=== PATIENT | male | born 1995 | race Two or more races ===

== ENCOUNTER 2017-09-19 15:53 | Emergency (ER) | payer OTHER ==
[~2017-09-19] VITALS: Ht 185.4 cm; Wt 113.4 kg
== END 2017-09-19 21:55 | disposition home or self-care (01) ==
LOC: ER 15:53
DX: S93.692A Other sprain of left foot, initial encounter (principal); S93.691A Other sprain of right foot, initial encounter; X50.3XXA Overexertion from repetitive movements, initial encounter; Y93.B9 Activity, other involving muscle strengthening exercises; Y92.89 Other specified places as the place of occurrence of the external cause; Y99.8 Other external cause status

== ENCOUNTER 2019-03-19 13:49 | Emergency (ER) | payer OTHER ==
[~2019-03-19] VITALS: Ht 188 cm; Wt 110.7 kg
== END 2019-03-19 18:39 | disposition home or self-care (01) ==
LOC: ER 13:49
DX: R42 Dizziness and giddiness (principal)

== ENCOUNTER 2020-10-25 20:19 | Emergency (ER) | payer OTHER ==
[~2020-10-25] VITALS: Ht 185.4 cm; Wt 99.8 kg
[2020-10-25] MEDS ORDERED: MEDI-MECLIZINE25 MG PO (22:48)
[2020-10-25] MEDS ORDERED: DUI500 PO (22:51)
== END 2020-10-25 22:53 | disposition home or self-care (01) ==
LOC: ER 20:19
DX: R42 Dizziness and giddiness (principal)

== ENCOUNTER 2021-03-09 21:57 | Emergency (ER) | payer OTHER ==
[~2021-03-09] VITALS: Ht 188 cm; Wt 117.9 kg
[~2021-03-09 21:57] MED LIST: DUI500 PO; MEDI-MECLIZINE25 MG PO
[2021-03-09] MEDS ORDERED: TYLENOL (22:21)
[2021-03-10] MEDS ORDERED: DOLOGEN CAPLET1 EACH PO (00:26)
== END 2021-03-10 00:40 | disposition home or self-care (01) ==
LOC: ER 21:57
DX: J02.9 Acute pharyngitis, unspecified (principal); G44.89 Other headache syndrome; R50.9 Fever, unspecified; Z11.52 Encounter for screening for COVID-19

== ENCOUNTER 2021-03-18 20:59 | Emergency (ER) | payer OTHER ==
[~2021-03-18] VITALS: Ht 190.5 cm; Wt 122.5 kg
[~2021-03-18 20:59] MED LIST changes: +DOLOGEN CAPLET1 EACH PO; +TYLENOL
== END 2021-03-18 23:53 | disposition home or self-care (01) ==
LOC: ER 20:59
DX: J02.8 Acute pharyngitis due to other specified organisms (principal); B37.0 Candidal stomatitis